=== PATIENT | female | born 1965 | race Caucasian/White ===

== ENCOUNTER 2020-09-11 15:36 | Emergency (ER) | payer OTHER ==
[~2020-09-11] VITALS: Ht 162.6 cm; Wt 73.5 kg
[2020-09-11 15:36] VITALS: BP_SYST 118
[2020-09-11 16:30] VITALS: BP_SYST 121
[2020-09-11 16:42] LABS: BASOPHILS # (AUTO) 0.1 K/uL (0.0-0.2); BASOPHILS % (AUTO) 0.4 % (0.0-2.0); EOSINOPHILS % (AUTO) 0.2 % (0.0-4.0); HEMATOCRIT 43.3 % (36-48); HEMOGLOBIN 14.8 g/dL (12.0-16.0); LYMPHOCYTES # (AUTO) 2.7 K/uL (1.0-5.5); LYMPHOCYTES % (AUTO) 19.2 % (20.5-51.5); MEAN CORPUSCULAR HEMOGLOBIN 30 pg (27-31); MEAN CORPUSCULAR HGB CONC 34 % (32-36); MEAN CORPUSCULAR VOLUME 87 fL (79.0-98.0); NEUTROPHILS # (AUTO) 10.1 K/uL (1.8-7.7); NEUTROPHILS % (AUTO) 73.2 % (40.0-70.0); PLATELET COUNT (AUTO) 262 K/uL (130-430); RED CELL DISTRIBUTION WIDTH 12.7 % (9.0-15.0); WHITE BLOOD COUNT (AUTO) 13.8 K/uL (4.8-10.8)
[2020-09-11 17:32] LABS: ALBUMIN 4.2 g/dL (3.4-4.8); CALCIUM 9.6 mg/dL (8.4-11.0); CREATININE 1.24 mg/dL (0.55-1.30); TOTAL BILIRUBIN 0.3 mg/dL (0.0-1.0)
[2020-09-11 18:20] LABS: PROTHROMBIN TIME 10.9 SECS (9.5-12.5)
== END 2020-09-11 17:45 | disposition left against medical advice (07) ==
LOC: SED 15:36
DX: R55 Syncope and collapse (principal)
CPT/HCPCS: 36415; 71045; 80053; 84484; 85025; 85610-TC; 85730-TC; 99284